=== PATIENT | male | born 1940 | race Caucasian/White ===

== ENCOUNTER 2018-08-27 12:15 | Outpatient (CLI) | payer MEDICARE, BC ==
--- NOTE | 2018-08-27 17:25 | EKG ---
Test Reason : PREOP FOR 09/02/2018 Blood Pressure : / mmHG Vent. Rate : 049 BPM Atrial Rate : 049 BPM P-R Int : 174 ms QRS Dur : 130 ms QT Int : 470 ms P-R-T Axes : 046 -34 033 degrees QTc Int : 424 ms Sinus bradycardia Left axis deviation Left ventricular hypertrophy with QRS widening Possible Lateral infarct , age undetermined Abnormal ECG No previous ECGs available Confirmed by DR. Portillo BILLINGS ([id number]) on 08/27/2018 5:24:52 PM Referred By: JENNIFER Confirmed By:DR. Portillo BILLINGS
== END 2018-08-27 12:16 | disposition home or self-care (01) ==
LOC: EKG 12:15
PROVIDERS: ATTEND Ophthalmology
DX: Z01.810 Encounter for preprocedural cardiovascular examination (principal)
CPT/HCPCS: 93005; 93010